=== PATIENT | male | born 1990 | race Caucasian/White ===

== ENCOUNTER 2017-07-21 20:07 | Emergency (ER) | payer OTHER ==
[2017-07-21] MEDS ORDERED: LIDOCAINE 1% INJ-PF (10 MG/ML) 30 ML SDV INJ ONE (21:41)
--- NOTE | 2017-07-21 21:52 | ER Document Report ---
HPI - HPI Pain Level: 5 Notes: Patient is a 27-year-old male with no significant past medical history who presents to the ED complaining of a crush injury and laceration to his left fourth digit with nail avulsed. Patient states that he got his finger stuck in a door. Patient states that his tetanus is up-to-date. He has no other concerns or complaints at this time. Denies any headache, fever, neck pain, URI , sore throat, chest pain, palpitations, syncope, cough, shortness of breath, wheeze, dyspnea, abdominal pain, nausea/vomiting/diarrhea, numbness/tingling, muscle paralysis/weakness, or rash. - ROS Systems Reviewed and Negative: Yes All other systems reviewed and negative Past Medical History - Social History Smoking Status: Never Smoker Family History: Reviewed & Not Pertinent Patient has suicidal ideation: No Patient has homicidal ideation: No Renal/ Medical History: Denies: Hx Peritoneal Dialysis Vertical Provider Document - CONSTITUTIONAL Agree With Documented VS: Yes Notes: PHYSICAL EXAMINATION: GENERAL: Well-appearing, well-nourished and in no acute distress. LUNGS: Breath sounds clear to auscultation bilaterally and equal. No wheezes rales or rhonchi. HEART: Regular rate and rhythm without murmurs, rubs, gallops. Musculoskeletal: Rt hand/4th digit: FROM to passive/active. Strength 5+/5. N/V intact distal. + tenderness distally. Nail avulsed and laceration present. Extremities: No cyanosis, clubbing, or edema b/l. Peripheral pulses 2+. Capillary refill less than 3 seconds. NEUROLOGICAL: Cranial nerves grossly intact. Normal speech, normal gait. Normal sensory, motor exams PSYCH: Normal mood, normal affect. SKIN: Nail avulsion with laceration to the rt 4th digit of hand. Laceration is irregular and encircles half of the digit approx 1.5cm total length. - INFECTION CONTROL TRAVEL OUTSIDE OF THE [place] IN LAST 30 DAYS: No Course - Re-evaluation Re-evalutation: 07/21/17 23:17 Patient is an afebrile, well-hydrated, 27-year-old male who presents to the ED with an open fracture to his right fourth digit of the hand distally. Vitals are acceptable without any significant tachycardia, tachypnea, or hypoxia. PE is otherwise unremarkable for any neurovascular compromise, obvious tendon/ ligament rupture, septic joint. See x-ray result. No other labs or imaging warranted at this time based on H&P. Wound was thoroughly irrigated and cleansed. Wound edges were approximated appropriately utilizing 4 simple interrupted sutures with 2 of them going through the avulsed nail to hold it in place with the nail fold on top of the skin, but patient is missing a piece of that nail fold. Patient is aware that his nail may not grow back. Wound dressing and splint placed. Wound instructions reviewed. I did review with Dr. Vo who recommended closure, antibiotics, and follow-up on Monday in their office. I will send him home with a prescription for Keflex. Return to the ED with any worsening/concerning symptoms otherwise as reviewed in discharge. Patient is in agreement. - Vital Signs Vital signs: Temp Pulse Resp BP Pulse Ox 98.6 F 78 16 160/90 H 97 07/21/17 20:29 07/21/17 20:29 07/21/17 20:29 07/21/17 20:29 07/21/17 20:29 Procedures - Laceration/Wound Repair Right Finger 4th digit Time completed: 23:15 Wound length (cm): 1.5 Wound's Depth, Shape: Superficial, Irregular, Nail-avulsed Laceration pre-procedure: Sterile PPE donned, Sterile drapes applied, Other - chlorhexadine Anesthetic type: 1% Lidocaine Volume Anesthetic (mLs): 10 Wound explored: Clean, No foreign body removed Irrigated w/ Saline (mLs): 150 Wound Debrided: Minimal Wound Repaired With: Sutures Suture Size/Type: 4:0, Nylon Number of Sutures: 4 Layer Closure?: No Post-procedure wound care: Sterile dressing applied, Splint applied Post-procedure NV exam normal: Yes Complications: No Discharge - Discharge Clinical Impression: Open fracture of finger of right hand Qualifiers: Encounter type: initial encounter Finger: ring finger Phalanx: distal Fracture alignment: displaced Qualified Code(s): S62.634B - Displaced fracture of distal phalanx of right ring finger, initial encounter for open fracture Condition: Stable Disposition: HOME, SELF-CARE Instructions: Antibiotic Ointment Protection ([facility]), Soap Cleansing ([facility]), Laceration Care ([facility]), Open Finger Tuft Fracture ([facility]) Additional Instructions: Rest, Ice, Compression, Elevation Use splint as directed Tylenol/ibuprofen as needed F/u with your PCP in 3-5 days for a recheck F/u with Orthopedics on Monday in their office* Return to the ED with any worsening symptoms and/or development of fever, headache, chest pain, palpitations, syncope, shortness of breath, trouble breathing, abdominal pain, n/v/d, muscle weakness/paralysis, numbness/tingling, swelling, redness, or other worsening symptoms that are concerning to you. Prescriptions: Cephalexin Monohydrate [Keflex 500 mg Capsule] 500 mg PO TID #30 capsule Forms: Elevated Blood Pressure Referrals: [facility] [Provider Group] - 07/24/17
--- NOTE | 2017-07-21 22:21 | RADIOLOGY REPORT (SQ) ---
EXAM DESCRIPTION: HAND RIGHT 3 VIEWS COMPLETED DATE/TIME: 07/21/2017 10:03 pm REASON FOR STUDY: rt 4th digit crush injury COMPARISON: None. EXAM PARAMETERS: NUMBER OF VIEWS: Three views. TECHNIQUE: AP, lateral and oblique radiographic images acquired of the right hand. LIMITATIONS: None. FINDINGS: MINERALIZATION: Normal. 4th digit 5 mm distal tuft avulsion with soft tissue laceration. No other fracture identified. OTHER: No other significant finding. IMPRESSION: 4th digit 5 mm distal tuft avulsion with soft tissue laceration. TECHNICAL DOCUMENTATION: JOB ID: [id number] [id number] 2010 [employer]- All Rights Reserved Reading location - IP/workstation name: [email or web address]
[2017-07-21] MEDS ORDERED: CEPHALEXIN 500 MG CAPSULE PO ONE (23:21)
[2017-07-22 00:26] VITALS: BP 142/70
== END 2017-07-22 | disposition home or self-care (01) ==
LOC: ER 20:07
PROC: 0HQFXZZ Repair Right Hand Skin, External Approach (ICD-10-PCS; principal; 2017-07-21)
DX: S62.634B Displaced fracture of distal phalanx of right ring finger, initial encounter for open fracture (principal); W23.0XXA Caught, crushed, jammed, or pinched between moving objects, initial encounter
CPT/HCPCS: 99283; 73130; 12001; J3490